=== PATIENT | female | born 1930 | race Caucasian/White ===

== ENCOUNTER → 2016-04-13 | Outpatient (CLI) | payer MEDICARE, OTHER ==
[~2016-04-13] MED LIST: CALCTAB5 OR; FLUT0.0535 NAS; OMEGCAP2 OR; VALS160T51 PO
[2016-04-13 11:49] LABS: Basophils # (auto) 0 uL; Basophils % (auto) 0.4 % (0.0-2.0); Eosinophils # (auto) 0 uL; Eosinophils % (auto) 0.9 % (0.0-7.0); Hematocrit 47.1 % (36.0-46.0); Hemoglobin 15.7 g/dL (12.2-16.2); Lymphocytes # (auto) 0.5 uL; Lymphocytes % (auto) 10.1 % (10.0-50.0); Mean Corpuscular Hemoglobin 29.1 pg (28.0-32.0); Mean Corpuscular Hgb Conc. 33.3 g/dL (32.0-36.0); Mean Corpuscular Volume 87.7 fL (80.0-100.0); Mean Platelet Volume 6.4 fL (7.4-10.4); Monocytes # (auto) 0.4 uL; Monocytes % (auto) 8.5 % (0.0-12.0); Neutrophils % (auto) 80.1 % (37.0-80.0); Platelet Count (auto) 270 10^3/uL (140-450); Red Cell Distribution Width 13.6 % (11.6-16.0)
[2016-04-13 12:11] LABS: Albumin 4.2 g/dL (3.4-5.0); BUN/Creatinine Ratio 22.2; Calcium 9.6 mg/dL (8.5-10.1); Potassium 3.6 mmol/L (3.5-5.1); Total Protein 7.2 g/dL (6.4-8.2)
== END | disposition home or self-care (01) ==
LOC: LAB 09:58
PROVIDERS: ATTEND Internal Medicine
DX: C56.9 Malignant neoplasm of unspecified ovary (principal)
CPT/HCPCS: 36415; 80053; 83615; 85025

== ENCOUNTER 2016-10-23 17:05 | Emergency (ER) | payer MEDICARE, OTHER ==
[~2016-10-23] VITALS: Ht 170.2 cm; Wt 57.6 kg
[2016-10-23 17:09] VITALS: BP 214/95
[2016-10-23] MEDS ORDERED: cloNIDine HCL 0.1 MG TAB PO ONE (17:30)
[2016-10-23] MEDS ORDERED: METOPROLOL SUCCINATE XL 50 MG TAB PO ONE (17:45)
[2016-10-23 18:38] LABS: Basophils # (auto) 0 uL; Basophils % (auto) 0.4 % (0.0-2.0); CONDITION Y; Eosinophils # (auto) 0 uL; Eosinophils % (auto) 0.7 % (0.0-7.0); Hematocrit 45.5 % (36.0-46.0); Hemoglobin 15.8 g/dL (12.2-16.2); Lymphocytes # (auto) 0.5 uL; Lymphocytes % (auto) 8.6 % (10.0-50.0); Mean Corpuscular Hemoglobin 30.3 pg (28.0-32.0); Mean Corpuscular Hgb Conc. 34.8 g/dL (32.0-36.0); Mean Platelet Volume 6.5 fL (7.4-10.4); Monocytes # (auto) 0.4 uL; Monocytes % (auto) 7.6 % (0.0-12.0); Neutrophils # (auto) 4.4 uL; Neutrophils % (auto) 82.7 % (37.0-80.0); Platelet Count (auto) 273 10^3/uL (140-450); Red Cell Distribution Width 14.6 % (11.6-16.0); White Blood Cell 5.3 10^3/uL (4.4-10.8)
[2016-10-23 18:40] LABS: Albumin 4.2 g/dL (3.4-5.0); Alkaline Phosphatase 58 U/L (45-117); Anion Gap 8 (5-15); Aspartate Aminotransferase 17 U/L (15-37); BUN/Creatinine Ratio 18.8; Bilirubin, Total 0.7 mg/dL (0.2-1.0); Blood Urea Nitrogen 15 mg/dL (7-18); Calcium 9.6 mg/dL (8.5-10.1); Carbon Dioxide 31 mmol/L (21-32); Chloride 93 mmol/L (98-107); GFR African American 88 mL/min; GFR Non-African American 72 mL/min; Glucose 99 mg/dL (74-106); Magnesium 2.1 mg/dL (1.6-2.6); Potassium 4.1 mmol/L (3.5-5.1); Sodium 132 mmol/L (136-145); Total Protein 7.7 g/dL (6.4-8.2)
== END 2016-10-23 23:59 | disposition left against medical advice (07) ==
LOC: ER 17:07
DX: R07.9 Chest pain, unspecified (principal); Z53.21 Procedure and treatment not carried out due to patient leaving prior to being seen by health care provider
CPT/HCPCS: 36415; 71020; 80053; 83735; 84484; 85025; 93005

== ENCOUNTER → 2016-12-07 | Outpatient (CLI) | payer MEDICARE, OTHER ==
[2016-12-07 14:44] LABS: Basophils # (auto) 0 uL; Basophils % (auto) 0.3 % (0.0-2.0); CONDITION Y; Eosinophils # (auto) 0 uL; Eosinophils % (auto) 0.3 % (0.0-7.0); Hematocrit 48.8 % (36.0-46.0); Hemoglobin 16.6 g/dL (12.2-16.2); Lymphocytes # (auto) 0.5 uL; Lymphocytes % (auto) 7.6 % (10.0-50.0); Mean Corpuscular Hemoglobin 29.7 pg (28.0-32.0); Mean Corpuscular Volume 87.4 fL (80.0-100.0); Mean Platelet Volume 6.7 fL (7.4-10.4); Monocytes # (auto) 0.4 uL; Monocytes % (auto) 5.9 % (0.0-12.0); Neutrophils # (auto) 5.2 uL; Neutrophils % (auto) 85.9 % (37.0-80.0); Platelet Count (auto) 282 10^3/uL (140-450); Red Cell Distribution Width 13.4 % (11.6-16.0); White Blood Cell 6.1 10^3/uL (4.4-10.8)
[2016-12-07 14:50] LABS: Albumin 4.2 g/dL (3.4-5.0); BUN/Creatinine Ratio 18.7; Bilirubin, Total 0.9 mg/dL (0.2-1.0); Calcium 9.6 mg/dL (8.5-10.1); Potassium 3.5 mmol/L (3.5-5.1)
== END | disposition home or self-care (01) ==
LOC: LAB 13:23
PROVIDERS: ATTEND Internal Medicine
DX: D36.9 Benign neoplasm, unspecified site (principal)
CPT/HCPCS: 36415; 80053; 83615; 85025

== ENCOUNTER → 2017-06-09 | Outpatient (CLI) | payer MEDICARE, OTHER ==
[~2017-06-09] MED LIST changes: +FLUT0.05 NAS; -FLUT0.0535 NAS
[2017-06-09 13:14] LABS: Basophils # (auto) 0.1 uL; Basophils % (auto) 1.5 % (0.0-2.0); Eosinophils # (auto) 0 uL; Eosinophils % (auto) 0.8 % (0.0-7.0); Hematocrit 46.6 % (36.0-46.0); Lymphocytes # (auto) 0.5 uL; Lymphocytes % (auto) 9.6 % (10.0-50.0); Mean Corpuscular Hgb Conc. 34.2 g/dL (32.0-36.0); Mean Corpuscular Volume 84.7 fL (80.0-100.0); Monocytes # (auto) 0.5 uL; Monocytes % (auto) 10.1 % (0.0-12.0); Neutrophils # (auto) 3.9 uL; Nucleated Red Blood Cells % 0.1 %; Platelet Count (auto) 245 10^3/uL (140-450); Red Blood Cells 5.51 10^6/uL (4.0-5.20); Red Cell Distribution Width 14.3 % (11.8-14.3)
[2017-06-09 13:57] LABS: Bilirubin, Total 0.9 mg/dL (0.2-1.0); Calcium 9.4 mg/dL (8.5-10.1); Potassium 3.4 mmol/L (3.5-5.1); Total Protein 7.7 g/dL (6.4-8.2)
== END | disposition home or self-care (01) ==
LOC: LAB 12:55
PROVIDERS: ATTEND Internal Medicine
DX: C56.9 Malignant neoplasm of unspecified ovary (principal)
CPT/HCPCS: 36415; 80053; 83615; 85025; 86304

== ENCOUNTER → 2017-07-04 | Outpatient (CLI) | payer MEDICARE, OTHER | END | disposition home or self-care (01) | LOC: LAB 08:41 | PROVIDERS: ATTEND Internal Medicine | DX: C56.9 Malignant neoplasm of unspecified ovary (principal) | CPT/HCPCS: 36415; 82565; 84520 ==

== ENCOUNTER → 2018-01-02 | Outpatient (CLI) | payer MEDICARE, OTHER ==
[2018-01-02 11:21] LABS: Basophils # (auto) 0 uL; Eosinophils # (auto) 0 uL; Eosinophils % (auto) 0.7 % (0.0-7.0); Hematocrit 46.6 % (36.0-46.0); Hemoglobin 15.7 g/dL (12.2-16.2); Lymphocytes # (auto) 0.4 uL; Lymphocytes % (auto) 8.9 % (10.0-50.0); Mean Corpuscular Hemoglobin 28.5 pg (28.0-32.0); Mean Corpuscular Hgb Conc. 33.8 g/dL (32.0-36.0); Mean Corpuscular Volume 84.5 fL (80.0-100.0); Monocytes # (auto) 0.4 uL; Monocytes % (auto) 7.6 % (0.0-12.0); Neutrophils % (auto) 81.8 % (37.0-80.0); Nucleated Red Blood Cells % 0.1 %; Platelet Count (auto) 268 10^3/uL (140-450); Red Blood Cells 5.51 10^6/uL (4.0-5.20); Red Cell Distribution Width 15.5 % (11.8-14.3); White Blood Cell 4.9 10^3/uL (4.4-10.8)
[2018-01-02 12:32] LABS: Albumin 4.1 g/dL (3.4-5.0); Bilirubin, Total 1.2 mg/dL (0.2-1.0); Calcium 9.8 mg/dL (8.5-10.1); Potassium 3.9 mmol/L (3.5-5.1); Total Protein 8.3 g/dL (6.4-8.2)
== END | disposition home or self-care (01) ==
LOC: LAB 11:02
PROVIDERS: ATTEND Internal Medicine
DX: C56.9 Malignant neoplasm of unspecified ovary (principal)
CPT/HCPCS: 36415; 80053; 83615; 85025; 86304

== ENCOUNTER → 2018-07-17 | Outpatient (CLI) | payer MEDICARE, OTHER ==
[2018-07-17 12:43] LABS: Basophils # (auto) 0 uL; Eosinophils # (auto) 0 uL; Hematocrit 46.9 % (36.0-46.0); Hemoglobin 16.4 g/dL (12.2-16.2); Lymphocytes # (auto) 0.6 uL; Lymphocytes % (auto) 13.3 % (10.0-50.0); Mean Corpuscular Hemoglobin 29.4 pg (28.0-32.0); Mean Corpuscular Hgb Conc. 34.9 g/dL (32.0-36.0); Mean Corpuscular Volume 84.1 fL (80.0-100.0); Monocytes # (auto) 0.5 uL; Monocytes % (auto) 11.3 % (0.0-12.0); Neutrophils % (auto) 73.4 % (37.0-80.0); Platelet Count (auto) 238 10^3/uL (140-450); Red Blood Cells 5.58 10^6/uL (4.0-5.20); Red Cell Distribution Width 14.5 % (11.8-14.3); White Blood Cell 4.1 10^3/uL (4.4-10.8)
[2018-07-17 12:58] LABS: Potassium 3.3 mmol/L (3.5-5.1)
[2018-07-17 13:12] LABS: BUN/Creatinine Ratio 16.9; Bilirubin, Total 1.2 mg/dL (0.2-1.0); Calcium 9.3 mg/dL (8.5-10.1); Total Protein 7.4 g/dL (6.4-8.2)
== END | disposition home or self-care (01) ==
LOC: LAB 10:42
PROVIDERS: ATTEND Internal Medicine
DX: C56.9 Malignant neoplasm of unspecified ovary (principal)
CPT/HCPCS: 36415; 80053; 83615; 85025; 86304

== ENCOUNTER 2018-10-16 13:03 | Emergency (ER) | payer MEDICARE, OTHER ==
[~2018-10-16] VITALS: Ht 170.2 cm; Wt 52.2 kg
[2018-10-16] MEDS ORDERED: cloNIDine HCL 0.1 MG TAB PO ONE (13:15)
[2018-10-16] MEDS ORDERED: SODIUM CHLORIDE 0.9% 1,000 ML IV ONE (13:21)
[2018-10-16 14:15] LABS: Albumin 3.8 g/dL (3.4-5.0); Anion Gap 6 (5-15); Blood Urea Nitrogen 11 mg/dL (7-18); Calcium 9.4 mg/dL (8.5-10.1); Carbon Dioxide 33 mmol/L (21-32); Chloride 91 mmol/L (98-107); Glucose 101 mg/dL (74-106); Potassium 3.1 mmol/L (3.5-5.1); Sodium 130 mmol/L (136-145)
[2018-10-16 14:20] LABS: Alanine Aminotransferase 19 U/L (13-56); Alkaline Phosphatase 54 U/L (45-117); Aspartate Aminotransferase 24 U/L (15-37); BUN/Creatinine Ratio 14.5; Bilirubin, Total 1.1 mg/dL (0.2-1.0); GFR African American 93 mL/min; GFR Non-African American 77 mL/min; Total Protein 7.7 g/dL (6.4-8.2)
[2018-10-16 15:11] LABS: Basophils # (auto) 0.1 uL; Basophils % (auto) 1.2 % (0.0-2.0); Eosinophils # (auto) 0 uL; Eosinophils % (auto) 0.8 % (0.0-7.0); Hemoglobin 15.7 g/dL (12.2-16.2); Lymphocytes # (auto) 0.3 uL; Mean Corpuscular Hemoglobin 29.2 pg (28.0-32.0); Mean Corpuscular Hgb Conc. 34.9 g/dL (32.0-36.0); Mean Corpuscular Volume 83.6 fL (80.0-100.0); Monocytes # (auto) 0.5 uL; Monocytes % (auto) 11.4 % (0.0-12.0); Neutrophils # (auto) 3.5 uL; Neutrophils % (auto) 79.6 % (37.0-80.0); Nucleated Red Blood Cells % 0.1 %; Platelet Count (auto) 239 10^3/uL (140-450); Red Blood Cells 5.38 10^6/uL (4.0-5.20); Red Cell Distribution Width 14.2 % (11.8-14.3); White Blood Cell 4.3 10^3/uL (4.4-10.8)
[2018-10-16 15:28] LABS: Partial Thromboplastin Time 28.1 sec (23.64-32.05)
[2018-10-16] MEDS ORDERED: POTASSIUM EFFERVESENT TAB 25 MEQ PO ONE (16:30)
[2018-10-16 19:37] LABS: Urine WBC None Seen /hpf (0 - 5)
[2018-10-16 19:49] LABS: Urine Bacteria NONE SEEN /hpf (None Seen); Urine Blood Negative /uL (Negative); Urine Specific Gravity 1.007 (1.001-1.035)
[2018-10-16 22:16] VITALS: BP 184/71
== END 2018-10-16 22:17 | disposition home or self-care (01) ==
LOC: ER 13:16
DX: I10 Essential (primary) hypertension (principal); E87.1 Hypo-osmolality and hyponatremia; E87.6 Hypokalemia; Z88.8 Allergy status to other drugs, medicaments and biological substances; Z79.899 Other long term (current) drug therapy; Z87.891 Personal history of nicotine dependence
CPT/HCPCS: 36415; 71045; 80053; 81001; 84484; 85025; 85610; 85730; 93005; 99284; J7030

== ENCOUNTER → 2019-03-14 | Outpatient (CLI) | payer MEDICARE, OTHER ==
[2019-03-14 10:39] LABS: Basophils # (auto) 0 uL; Basophils % (auto) 1.1 % (0.0-2.0); Eosinophils # (auto) 0 uL; Eosinophils % (auto) 1.2 % (0.0-7.0); Hematocrit 44.2 % (36.0-46.0); Hemoglobin 15.4 g/dL (12.2-16.2); Lymphocytes # (auto) 0.4 uL; Lymphocytes % (auto) 10.6 % (10.0-50.0); Mean Corpuscular Hemoglobin 29.9 pg (28.0-32.0); Mean Corpuscular Hgb Conc. 34.7 g/dL (32.0-36.0); Mean Corpuscular Volume 85.9 fL (80.0-100.0); Monocytes # (auto) 0.4 uL; Monocytes % (auto) 10.1 % (0.0-12.0); Neutrophils # (auto) 3.1 uL; Nucleated Red Blood Cells % 0.1 %; Platelet Count (auto) 224 10^3/uL (140-450); Red Blood Cells 5.15 10^6/uL (4.0-5.20); Red Cell Distribution Width 14.4 % (11.8-14.3)
[2019-03-14 11:19] LABS: Albumin 4.1 g/dL (3.4-5.0); Calcium 9.5 mg/dL (8.5-10.1); Potassium 3.5 mmol/L (3.5-5.1)
[2019-03-14 11:25] LABS: BUN/Creatinine Ratio 18.4; Bilirubin, Total 1.1 mg/dL (0.2-1.0); Total Protein 7.8 g/dL (6.4-8.2)
== END | disposition home or self-care (01) ==
LOC: LAB 10:08
DX: I10 Essential (primary) hypertension (principal); G62.9 Polyneuropathy, unspecified; E78.5 Hyperlipidemia, unspecified; R42 Dizziness and giddiness; R94.5 Abnormal results of liver function studies; R53.1 Weakness; I63.49 Cerebral infarction due to embolism of other cerebral artery; R17 Unspecified jaundice
CPT/HCPCS: 36415; 80053; 80061; 83615; 84439; 84479; 85025; 87086

== ENCOUNTER → 2019-06-12 | Outpatient (CLI) | payer MEDICARE, OTHER ==
[2019-06-12 10:03] LABS: Urine Bacteria FEW /hpf (None Seen); Urine Blood Negative /uL (Negative); Urine Specific Gravity 1.009 (1.001-1.035); Urine WBC 1 /hpf (0 - 5)
[2019-06-12 10:13] LABS: Basophils # (auto) 0 10 ^3/uL (0-0.2); Basophils % (auto) 0.7 % (0.0-2.0); Eosinophils # (auto) 0 10 ^3/uL (0-0.8); Eosinophils % (auto) 1.3 % (0.0-7.0); Hematocrit 48.1 % (36.0-46.0); Hemoglobin 16.8 g/dL (12.2-16.2); Lymphocytes # (auto) 0.4 10 ^3/uL (0.4-5.4); Mean Corpuscular Hemoglobin 29.6 pg (28.0-32.0); Mean Corpuscular Volume 84.5 fL (80.0-100.0); Monocytes # (auto) 0.4 10 ^3/uL (0-1.3); Monocytes % (auto) 9.6 % (0.0-12.0); Neutrophils % (auto) 77.4 % (37.0-80.0); Nucleated Red Blood Cells % 0.3 %; Platelet Count (auto) 242 10^3/uL (140-450); Red Blood Cells 5.69 10^6/uL (4.0-5.20); Red Cell Distribution Width 14.2 % (11.8-14.3); White Blood Cell 3.9 10^3/uL (4.4-10.8)
[2019-06-12 10:21] LABS: Albumin 4.3 g/dL (3.4-5.0); Potassium 3.3 mmol/L (3.5-5.1); Uric Acid 5.1 mg/dL (2.6-6.0)
[2019-06-12 10:26] LABS: BUN/Creatinine Ratio 14.3; Bilirubin, Total 1.1 mg/dL (0.2-1.0)
[2019-06-12 15:01] LABS: Folate (Folic Acid) 21.63 ng/mL (5.38-24)
== END | disposition home or self-care (01) ==
LOC: LAB 09:19
DX: J44.9 Chronic obstructive pulmonary disease, unspecified (principal); E55.9 Vitamin D deficiency, unspecified; N39.0 Urinary tract infection, site not specified; D51.9 Vitamin B12 deficiency anemia, unspecified; R74.8 Abnormal levels of other serum enzymes; R73.09 Other abnormal glucose; E78.5 Hyperlipidemia, unspecified
CPT/HCPCS: 36415; 80053; 80061; 81001; 82150; 82306; 82607; 82746; 83036; 84443; 84550; 85025; 87086

== ENCOUNTER → 2019-12-11 | Outpatient (CLI) | payer MEDICARE, OTHER ==
[2019-12-11 08:42] LABS: Basophils # (auto) 0 10 ^3/uL (0-0.2); Eosinophils # (auto) 0 10 ^3/uL (0-0.8); Hematocrit 43.6 % (36.0-46.0); Hemoglobin 15.2 g/dL (12.2-16.2); Lymphocytes # (auto) 0.5 10 ^3/uL (0.4-5.4); Lymphocytes % (auto) 11.3 % (10.0-50.0); Mean Corpuscular Hgb Conc. 34.9 g/dL (32.0-36.0); Mean Corpuscular Volume 83.3 fL (80.0-100.0); Monocytes # (auto) 0.4 10 ^3/uL (0-1.3); Monocytes % (auto) 9.4 % (0.0-12.0); Neutrophils # (auto) 3.2 10 ^3/uL (1.6-8.6); Neutrophils % (auto) 77.3 % (37.0-80.0); Nucleated Red Blood Cells % 0.1 %; Platelet Count (auto) 227 10^3/uL (140-450); Red Blood Cells 5.24 10^6/uL (4.0-5.20); Red Cell Distribution Width 14.3 % (11.8-14.3); White Blood Cell 4.2 10^3/uL (4.4-10.8)
[2019-12-11 08:46] LABS: Urine Bacteria FEW /hpf (None Seen); Urine Blood Negative /uL (Negative); Urine Specific Gravity 1.006 (1.001-1.035); Urine WBC 3 /hpf (0 - 5)
[2019-12-11 09:06] LABS: Magnesium 1.6 mg/dL (1.6-2.6)
[2019-12-11 09:13] LABS: Albumin 4.2 g/dL (3.4-5.0); BUN/Creatinine Ratio 12.9; Bilirubin, Total 1.2 mg/dL (0.2-1.0); Calcium 9.4 mg/dL (8.5-10.1); Total Protein 7.7 g/dL (6.4-8.2); Uric Acid 4.2 mg/dL (2.6-6.0)
[2019-12-11 09:31] LABS: Potassium 2.9 mmol/L (3.5-5.1)
[2019-12-11 10:19] LABS: Folate (Folic Acid) 22.45 ng/mL (5.38-24)
== END | disposition home or self-care (01) ==
LOC: LAB 07:53
PROVIDERS: ATTEND Internal Medicine
DX: E61.2 Magnesium deficiency (principal); D51.0 Vitamin B12 deficiency anemia due to intrinsic factor deficiency; E55.9 Vitamin D deficiency, unspecified; Z13.21 Encounter for screening for nutritional disorder; Z13.29 Encounter for screening for other suspected endocrine disorder; Z13.228 Encounter for screening for other metabolic disorders; J44.9 Chronic obstructive pulmonary disease, unspecified; R73.09 Other abnormal glucose; I10 Essential (primary) hypertension
CPT/HCPCS: 36415; 80053; 80061; 81001; 82306; 82607; 82746; 83036; 83735; 84443; 84550; 85025

== ENCOUNTER 2019-12-17 14:09 | Emergency (ER) | payer MEDICARE, OTHER ==
[~2019-12-17] VITALS: Ht 170.2 cm; Wt 49.9 kg
[2019-12-17 14:39] LABS: Basophils # (auto) 0 10 ^3/uL (0-0.2); Basophils % (auto) 0.6 % (0.0-2.0); Eosinophils # (auto) 0 10 ^3/uL (0-0.8); Eosinophils % (auto) 0.5 % (0.0-7.0); Hematocrit 43.6 % (36.0-46.0); Hemoglobin 15.2 g/dL (12.2-16.2); Lymphocytes # (auto) 0.4 10 ^3/uL (0.4-5.4); Lymphocytes % (auto) 8.7 % (10.0-50.0); Mean Corpuscular Hemoglobin 29.3 pg (28.0-32.0); Mean Corpuscular Hgb Conc. 34.9 g/dL (32.0-36.0); Mean Corpuscular Volume 83.9 fL (80.0-100.0); Monocytes # (auto) 0.4 10 ^3/uL (0-1.3); Monocytes % (auto) 7.3 % (0.0-12.0); Neutrophils # (auto) 4.1 10 ^3/uL (1.6-8.6); Neutrophils % (auto) 82.9 % (37.0-80.0); Nucleated Red Blood Cells % 0.3 %; Platelet Count (auto) 237 10^3/uL (140-450); Red Cell Distribution Width 14.3 % (11.8-14.3); White Blood Cell 4.9 10^3/uL (4.4-10.8)
[2019-12-17 14:55] LABS: INR 1.05 (0.9-1.15); Partial Thromboplastin Time 27.6 sec (23.0-31.2)
[2019-12-17 14:58] LABS: Albumin 4.1 g/dL (3.4-5.0); BUN/Creatinine Ratio 12.4; Calcium 9.7 mg/dL (8.5-10.1); Potassium 3.3 mmol/L (3.5-5.1)
[2019-12-17 15:01] LABS: Bilirubin, Total 1.1 mg/dL (0.2-1.0); Total Protein 7.5 g/dL (6.4-8.2)
[2019-12-17] MEDS ORDERED: POTASSIUM EFFERVESENT TAB 25 MEQ PO ONE (16:45)
[2019-12-17 16:53] VITALS: BP 104/64
== END 2019-12-17 17:45 | disposition home or self-care (01) ==
LOC: ER 14:09
DX: R04.0 Epistaxis (principal); I10 Essential (primary) hypertension; E87.6 Hypokalemia; F41.9 Anxiety disorder, unspecified; Z79.899 Other long term (current) drug therapy; Z88.8 Allergy status to other drugs, medicaments and biological substances; Z88.4 Allergy status to anesthetic agent; Z79.82 Long term (current) use of aspirin
CPT/HCPCS: 30901; 36415; 80053; 85025; 85610; 85730

== ENCOUNTER 2019-12-19 10:13 | Emergency (ER) | payer MEDICARE, OTHER ==
[~2019-12-19] VITALS: Ht 170.2 cm; Wt 51.3 kg
[2019-12-19 10:22] VITALS: BP 150/78
== END 2019-12-19 11:32 | disposition home or self-care (01) ==
LOC: ER 10:13
DX: Z45.89 Encounter for adjustment and management of other implanted devices (principal); I10 Essential (primary) hypertension; Z79.899 Other long term (current) drug therapy; Z88.8 Allergy status to other drugs, medicaments and biological substances